=== PATIENT | female | born 1960 | race Caucasian/White ===

== ENCOUNTER 2020-01-19 09:35 | Day surgery (SDC) | payer OTHER ==
[2020-01-14 14:51] VITALS: BMI 21.7
[~2020-01-19 09:35] MED LIST: LACTATED RINGERS 1,000 ML IV SCH; LIDOCAINE 1% (10MG/ML) FOR IV START INTRADERMA PRN
[2020-01-19 10:18] VITALS: TEMP 97.2
[2020-01-19] MEDS ORDERED: LIDOCAINE 1% INJ 10MG/ML (20 ML MDV) ONE (10:59)
[2020-01-19] MEDS ORDERED: MIDAZOLAM 2 MG/2 ML VIAL ONE (10:59)
[2020-01-19] MEDS ORDERED: PROPOFOL 10 MG/ML 20 ML VIAL IV ONE (10:59)
--- NOTE | 2020-01-19 12:08 | P.PCN ---
Date of Procedure: 01/19/20 Description of Procedure: BRIEF HISTORY: Patient is a 59-year-old female presenting for outpatient colonoscopy for blood per rectum. No prior colonoscopies. Reports some change in bowel habits and mucus production per rectum. No family history of colon cancer. PROCEDURE PERFORMED: Colonoscopy with polypectomy. PREOPERATIVE DIAGNOSIS: Blood in stool, no prior colonoscopy. ESTIMATED BLOOD LOSS: Minimal. IV sedation per Anesthesia. PROCEDURE: After informed consent was obtained, the patient, was brought into the endoscopy unit. IV sedation was administered by Anesthesia under continuous monitoring. Digital rectal examination was normal. Initially the Olympus CF-190 flexible video colonoscope was then inserted in the rectum, gradually advanced into the cecum without any difficulty. Careful examination was performed as the scope was gradually being withdrawn. Ileocecal valve and the appendiceal orifice were visualized and appeared normal. Prep was excellent. Mucosa of the cecum, ascending colon, transverse colon, descending colon, sigmoid colon, and rectum a ppeared normal. Diminutive polyps measuring 1-2 mm in size were removed with cold forcep polypectomy from the transverse colon, hepatic flexure, cecum and sigmoid. Flat tubulovillous-appearing rectal polyp measuring 1.5 cm removed in piecemeal fashion with cold snare polypectomy, located approximately 5 cm from the anal verge.. Retroflexion was performed in the rectum and no lesions were seen. The patient tolerated the procedure well. IMPRESSION: 4 diminutive polyps removed with cold forcep polypectomy from the cecum, hepatic flexure, transverse colon and sigmoid. Flat tubulovillous-appearing polyp removed in piecemeal fashion with cold snare polypectomy from the rectum. RECOMMENDATIONS: Findings of this examination were discussed with the patient and her daughter. Okay to resume diet. Okay to resume medications. Await pathology from polypectomys. Would recommend repeat colonoscopy in 6 months to 1 year due to piecemeal resection of the rectal polyp.
[2020-01-19 12:22] VITALS: BP 156/67; PULSE 69; RESP 16
== END 2020-01-19 12:47 | disposition home or self-care (01) ==
LOC: ORWHC2ENDO 09:35
PROVIDERS: ATTEND Internal Medicine
DX: D12.8 Benign neoplasm of rectum (principal); D12.0 Benign neoplasm of cecum; D12.3 Benign neoplasm of transverse colon; K63.5 Polyp of colon; K62.1 Rectal polyp; F17.200 Nicotine dependence, unspecified, uncomplicated; I34.1 Nonrheumatic mitral (valve) prolapse; G47.33 Obstructive sleep apnea (adult) (pediatric); G62.9 Polyneuropathy, unspecified; Z91.030 Bee allergy status; Z90.49 Acquired absence of other specified parts of digestive tract; Z98.890 Other specified postprocedural states; Z90.13 Acquired absence of bilateral breasts and nipples; Z99.89 Dependence on other enabling machines and devices; Z85.3 Personal history of malignant neoplasm of breast; Z85.118 Personal history of other malignant neoplasm of bronchus and lung
CPT/HCPCS: 45385; 45380; 88305; J2250; J2001; J2704

== ENCOUNTER → 2020-01-30 | Outpatient (CLI) | payer OTHER ==
--- NOTE | 2020-01-31 15:07 | CTL ---
EXAMINATION TYPE: CT Low Dose Lung DATE OF EXAM ORDERED: 01/30/2020 HISTORY: 59-year-old female history of tobacco use. Lung cancer screening patient with a personal his tory of lung and breast cancer. CT DLP: 50.[address] CTDI: 1.2 mGy Automated exposure control for dose reduction was used. SCREENING VISIT: Baseline COMPARISON: 09/03/2008 TECHNIQUE: Low dose computed tomography scan was performed through the chest at 1 mm thick sections a nd reconstructed images in the coronal/sagittal plane. CT DIAGNOSTIC QUALITY: Satisfactory FINDINGS: Heart normal size without pericardial effusion. Aorta normal caliber with very direct takeoff of the left vertebral artery directly from the aortic a rch. Bulky appearance to the thyroid gland suggesting goiter. Correlate with physical exam findings. No thoracic lymphadenopathy by CT size criteria. There are bilateral mastectomies. Postsurgical changes of right upper and right lower lobectomies. Mild diffuse bronchial wall thickening. Minimal emphysematous change. 5 mm subpleural pulmonary nodule anterior left midlung, axial image 142 seems to have been slightly s maller back in 2008. 7 mm subpleural pulmonary nodule peripheral left lower lobe appears larger as compared to 2009. Axial image 269. Focal opacity posterior right base, suspected postsurgical change and chronic effusion. Posterolatera l pleural based thickening measures up to 1.6 cm thick on axial image 21 and the subpleural opacity m easures up to 4.4 x 4.3 cm, axial image 219. Biapical pleural parenchymal scarring has progressed from 2009. More nodular 7 mm area is present at the right apex, axial image 45. Pleural parenchymal thickening at the medial right apex measures up t o 9 mm, reference coronal image 139. Visualized upper abdomen shows cholecystectomy clips. Bones: Mild degenerative disc disease midthoracic spine. No osseous destructive process. IMPRESSION: 1. LungRADS Category 4A (C, prior lung cancer history), (Probably suspicious, 5-15% chance of maligna ncy). The patient is status post right middle and right lower lobectomies. There is increased biapica l pleural parenchymal scarring from 2009 with a new 7 mm nodular area on the right. 2 subpleural nodu les on the left measuring up to 7 mm and have increased in size from 2009. There is also prominent galeana bpleural opacity at the posterior right base which should be reassessed at follow-up but may simply r elate to postsurgical change and chronic effusion. 2. COPD with mild emphysema. 3. Status post bilateral mastectomies. 4. Bulky thyroid gland suggesting goiter. Clinically correlate. RECOMMENDATION: 1. Three-month follow-up low-dose CT chest. 2. Smoking cessation. FOLLOW UP CT CHEST RECOMMENDATION: [address] LUNG RAD: Lung-Rad 4A Probably Suspicious
== END | disposition home or self-care (01) ==
LOC: RADCTMAIN 07:46
PROVIDERS: ATTEND Family Medicine
DX: Z12.2 Encounter for screening for malignant neoplasm of respiratory organs (principal); R91.8 Other nonspecific abnormal finding of lung field; J43.9 Emphysema, unspecified; J90 Pleural effusion, not elsewhere classified; F17.210 Nicotine dependence, cigarettes, uncomplicated; Z90.13 Acquired absence of bilateral breasts and nipples; Z85.118 Personal history of other malignant neoplasm of bronchus and lung

== ENCOUNTER → 2020-04-08 | Outpatient (CLI) | payer OTHER ==
--- NOTE | 2020-04-08 14:11 | ECHOS ---
STRESS ECHOCARDIOGRAM LUMASON: Vial INDICATIONS: Chest pressure. MEDICATIONS: BASELINE HEART RATE: 74 BASELINE BLOOD PRESSURE: 142/84 MAXIMUM HEART RATE: 136 MAXIMUM BLOOD PRESSURE: 142/84 85% MPHR: 138 100% MPHR: 162 METS: 8.5 MAXIMUM STAGE REACHED: 3 TOTAL EXERCISE TIME: 7:11 CLINICAL INFORMATION: Ms. Cota is a patient of Dr. Orozco who has chest pressure. She was brought in for a stress echo. Baseline heart rate 74 beats per minute. Baseline blood pressure 142/84 mmHg. Baseline 12-lead ECG shows sinus rhythm with early repolarization abnormality inferolaterally. Patient exercised on a Sreedhar protocol for 7 minutes, 11 seconds achieving a peak heart rate of 136 beats per minute. Normal blood pressure response. There was no ECG evidence for ischemia. No arrhythmias noted. Baseline 2D echo images showed normal LV size and systolic function without segmental wall motion abnormalities. At peak exercise, there was excellent augmentation of overall LV contractility without development of any wall motion abnormalities. At recovery, regional and global LV systolic function remained normal. IMPRESSION: 1. Average exercise capacity. 2. No ECG or echocardiographic evidence for ischemia at this workload level. MMODL / IJN: [id number] /
== END | disposition home or self-care (01) ==
LOC: RADNMMAIN 08:50
PROVIDERS: ATTEND Family Medicine
DX: R07.89 Other chest pain (principal)
CPT/HCPCS: 93351

== ENCOUNTER → 2020-05-21 | Outpatient (CLI) | payer OTHER ==
--- NOTE | 2020-05-22 20:33 | CTL ---
EXAMINATION TYPE: CT Low Dose Lung DATE OF EXAM ORDERED: 05/21/2020 HISTORY: Personal history of tobacco use. Lung cancer screening. History of lung and breast cancer. CT DLP: 44.[address] CTDI: 1.10 mGy Automated exposure control for dose reduction was used. SCREENING VISIT: Follow-up COMPARISON: CT low dose lung screening 01/29/2026 TECHNIQUE: Low dose computed tomography scan was performed through the chest at 1 mm thick sections a nd reconstructed images in the coronal plane at [address] DIAGNOSTIC QUALITY: Satisfactory FINDINGS: LUNG NODULES: Present, detailed below: Right upper and lower lobe lobectomy postsurgical changes with unchanged small right pleural effusion . Biapical pleural thickening and scarring. Focal 7 mm nodular component at the right apex (4:32) unc hanged versus 01/30/2020. 5 mm subpleural solid pulmonary nodule of the left upper lobe (4:128) unchanged versus 01/30/2020. 6 mm subpleural solid pulmonary nodule of the left lower lobe (4:250) unchanged versus 01/30/2020. LUNGS: COPD: Severity: Mild Fibrosis: Severity: None Lymph nodes: None Other findings: None HEART: Heart Size: Normal Coronary calcification: None Pericardial effusion: None OTHER FINDINGS: Upper abdomen: None Bony thorax: Mild degenerative change Supraclavicular region: None Other: None IMPRESSION: Pulmonary nodules are unchanged on 3 month follow-up. FOLLOW UP CT CHEST RECOMMENDATION: CT low dose lung screening in [address] LUNG RAD: Lung-Rad 2 Benign Appearance or Behavior
== END | disposition home or self-care (01) ==
LOC: RADCTMAIN 07:11
PROVIDERS: ATTEND Family Medicine
DX: Z12.2 Encounter for screening for malignant neoplasm of respiratory organs (principal); R91.8 Other nonspecific abnormal finding of lung field; F17.210 Nicotine dependence, cigarettes, uncomplicated

== ENCOUNTER → 2021-09-07 | Outpatient (CLI) | payer OTHER ==
--- NOTE | 2021-09-07 14:47 | ECHOS ---
STRESS ECHOCARDIOGRAM INDICATIONS: Chest pain BASELINE HEART RATE: 73 BASELINE BLOOD PRESSURE: 139/65 MAXIMUM HEART RATE: 124 MAXIMUM BLOOD PRESSURE: 191/67 85% MPHR: 136 100% MPHR: 160 METS: 9.1 MAXIMUM STAGE REACHED: 3 TOTAL EXERCISE TIME: 7:39 CLINICAL INFORMATION: Baseline rhythm is sinus mechanism, rate 73, normal axis and intervals, normal electrocardiogram. Baseline blood pressure 139/65 mmHg. Patient exercised on Sreedhar protocol for 7 minutes 39 seconds, reaching a peak rate of 124 beats per minute, which is less than her 85% maximum predicted heart rate. Peak blood pressure 183/74 mmHg. Test was terminated secondary to fatigue. There was no chest pain. Patient had dizziness at peak exercise. Electrocardiograph monitoring revealed rare PVCs. There was no evidence of diagnostic ischemic ST deviation. FINDINGS: Baseline echocardiogram revealed normal wall thickness and motion. At peak exercise there was normal wall motion augmentation with no hypokinesis or dyskinesis. CONCLUSION: 1. Average exercise tolerance with nondiagnostic electrocardiograph stress testing secondary to the inability to achieve 85% of maximum predicted heart rate. 2. Normal stress echocardiogram at the rate achieved. There was no evidence of stress- induced ischemia. MMODL / IJN: [id number] /
== END | disposition home or self-care (01) ==
LOC: RADNMMAIN 08:52
PROVIDERS: ATTEND Family Medicine
DX: R07.9 Chest pain, unspecified (principal); I10 Essential (primary) hypertension
CPT/HCPCS: 93351

== ENCOUNTER → 2021-09-30 | Outpatient (CLI) | payer OTHER ==
--- NOTE | 2021-09-30 08:41 | CTL ---
EXAMINATION TYPE: CT Low Dose Lung DATE OF EXAM ORDERED: 09/30/2021 HISTORY: Long-term tobacco use. Lung cancer screening CT DLP: 44.[address] CTDI: 1.2 mGy Automated exposure control for dose reduction was used. SCREENING VISIT: Second after baseline COMPARISON: Prior CTs in 2019 TECHNIQUE: Low dose computed tomography scan was performed through the chest at 1 mm thick sections a nd reconstructed images in multiple planes at 1 mm and [address] DIAGNOSTIC QUALITY: Satisfactory FINDINGS: LUNG NODULES: Present, detailed below: Stable 7 x 5 mm right apical nodule axial image 30 versus nodular scarring. Stable 4 mm subpleural anterior left upper lung nodule versus nodular scarring axial image 123. Stable 6 mm subpleural left lower lobe nodule axial image 243. No new greater than 5 mm pulmonary nodules or masses. LUNGS: COPD: Severity: Mild to moderate Fibrosis: Severity: Moderate biapical pleural/parenchymal scarring redemonstrated. Lymph nodes: No greater than 1 cm adenopathy Other findings: Surgical change to the right lower lung with right-sided volume loss redemonstrated. BILATERAL PLEURAL SPACE: Effusion: None Calcification: None Thickening: Moderate biapical thickening redemonstrated Pneumothorax: None HEART: Heart Size: Normal Coronary Calcification: None Pericardial Effusion: None OTHER FINDINGS: Upper abdomen: Cholecystectomy clips redemonstrated Bony thorax: None Supraclavicular region: None Other: None IMPRESSION: No new or enlarging nodules. Posttreatment changes to right lung redemonstrated. CT LUNG RAD AND CT CHEST RECOMMENDATION: Lung-Rad 2 Benign Appearance or Behavior: Continue annual sc reening with LDCT in 12 months. S Modifier (other clinically significant findings): None
== END | disposition home or self-care (01) ==
LOC: RADCTMAIN 07:47
PROVIDERS: ATTEND Family Medicine
DX: Z12.2 Encounter for screening for malignant neoplasm of respiratory organs (principal); Z87.891 Personal history of nicotine dependence
CPT/HCPCS: 71271

== ENCOUNTER → 2022-03-13 | Outpatient (CLI) | payer OTHER ==
--- NOTE | 2022-03-13 09:07 | BD ---
EXAMINATION TYPE: Axial Bone Density DATE OF EXAM: 03/13/2022 COMPARISON: NO PRIOR STUDIES AT [facility] CLINICAL HISTORY: 61 years year old Female. ICD-10 CODE: Z78.0 POST MENOPAUSAL Height: 67 Weight: 149 FRAX RISK QUESTIONS: History of Fracture in Adulthood: YES Current Tobacco Use: YES RISK FACTORS HISTORY OF: LT TIB FIB...2021 History of Wrist Fracture: RT... A YOUTH Active: YES Postmenopausal woman: YES, AT 49 YRS....CHEMO INDUCED Hyperparathyroidism: NO Adrenal Insufficiency: NO MEDICATIONS: Additional Medications: BP MEDS, XANAX, HX OF CHEMO, HERCEPTIN, LUNG CA AND LT BREAST CA, VIT D Additional History: HYPERTENSION, PORTION OF RT LUNG REMOVED FOR CA, BILAT MASTECTOMY, LT BR CANCER, ANXIETY EXAM MEASUREMENTS: Bone mineral densitometry was performed using the [employer] System. Bone mineral density as measured about the Lumbar spine is: ----- L1-L4(G/cm2): 1.070 T Score Values are as follows: ----- L1: -0.9 ----- L2: -0.8 ----- L3: -0.8 ----- L4: -1.2 ----- L1-L4: -0.9 Bone mineral density FIRST DEXA STUDY Bone mineral density about the R hip (g/cm2): 0.642 Bone mineral density about the L hip (g/cm2): 0.767 T Score values are as follows: -----R Neck: -2.6 -----L Neck: -1.9 -----R Total: -2.9 -----L Total: -1.9 Bone mineral density FIRST DEXA STUDY FRAX%s: The graph provided illustrates a 21.9% chance for a major osteoporotic fx and a 7.6% chance f or the hips probability for fx in 10 years time. IMPRESSION: Osteopenia (T Score between -2.5 and -1). There is slightly increased risk of fracture and the patient may be considered for treatment. Re-Screen 2-5 years. NOTE: T-SCORE=SD OF THE YOUNG ADULT MEAN.
== END | disposition home or self-care (01) ==
LOC: RADBDWWP 08:32
PROVIDERS: ATTEND Family Medicine
DX: M81.0 Age-related osteoporosis without current pathological fracture (principal); Z78.0 Asymptomatic menopausal state
CPT/HCPCS: 77080

== ENCOUNTER → 2023-11-08 | Outpatient (CLI) | payer OTHER ==
--- NOTE | 2023-11-08 14:43 | US ---
EXAMINATION TYPE: US pelvic complete DATE OF EXAM: 11/08/2023 COMPARISON: NONE CLINICAL INDICATION: Female, 63 years old with history of R10.2 PELVIC AND PERINEAL PAIN; Hx Lung an d breast cancer 2008 TECHNIQUE: Transabdominal sonographic images of the pelvis were acquired. Transvaginal sonographic images were medically necessary to better assess the following anatomy: All Date of LMP: 2008 EXAM MEASUREMENTS: Uterus: 6.2 x 3.1 x 4.2 cm Endometrial Stripe: 0.2 cm Right Ovary: 2.6 x 1.2 x 2.0 cm Left Ovary: 2.5 x 1.2 x 2.1 cm 1. Uterus: Retroverted Calcification right uterus fundus 2. Endometrium: wnl 3. Right Ovary: wnl 4. Left Ovary: wnl 5. Bilateral Adnexa: wnl 6. Posterior cul-de-sac: wnl IMPRESSION: 1. Small calcification in the uterine fundus with no other significant abnormalities seen.
== END | disposition home or self-care (01) ==
LOC: RADUSWWP 12:49
PROVIDERS: ATTEND Family Medicine
DX: N85.8 Other specified noninflammatory disorders of uterus (principal); R10.2 Pelvic and perineal pain
CPT/HCPCS: 76830; 76856

== ENCOUNTER → 2024-02-08 | Outpatient (CLI) | payer OTHER ==
--- NOTE | 2024-02-09 14:36 | CTL ---
EXAMINATION TYPE: CT Low Dose Lung DATE OF EXAM: 02/08/2024 8:18 AM CLINICAL INDICATION:Female, 63 years old with history of Z12.2 LUNG CANCER SCREEN F17.210 CURRENT SMO KER; smoker , history of tobacco use. COMPARISON: Multiple dating back to 01/30/2020.. TECHNIQUE: Multiple axial non-contrast scans were obtained from approximately the lung apices through the upper abdomen. Coronal and sagittal reformatted images were obtained. Low dose technique was uti lized. CT DLP: 52.8 mGycm, Automated exposure control for dose reduction was used. CT Contrast: Contrast used: None Oral contrast used: None FINDINGS: ======== Lack of intravenous contrast and low dose technique limits the evaluation of the vascular and soft ti ssue structures. LUNGS: No evidence of pulmonary fibrosis. No evidence of focal consolidation, pneumothorax or pleural effusion. Centrilobular emphysema changes. Nodules: Stable nodules as described below. A mixture at least 2019. RUL: Apical scarring with nodule measuring 5 mm series 9 image 16 MARISOL: 2 mm series 5 image 24. LLL: 5 mm series 5 image 49. The right middle and lower lobe are not definitively visualized may be surgically absent. AIRWAY: Patent and unremarkable. HEART: Size within normal limits. MEDIASTINUM: No gross evidence of adenopathy. VASCULATURE: No aortic aneurysm. MUSCULOSKELETAL: No acute osseous abnormalities SOFT TISSUES/LYMPH NODES: Unremarkable. LOWER NECK: No significant findings. UPPER ABDOMEN: Cholecystectomy clips. IMPRESSION: 1. No clinically significant pulmonary nodules. 2. Mild emphysema. 3. Postsurgical changes the right lung with rightward shift of the mediastinum without evidence for e nlarging lymphadenopathy. CT LUNG RAD AND CT CHEST RECOMMENDATION: Lung-Rad 2 Benign Appearance or Behavior: Continue annual sc reening with LDCT in 12 months. S Modifier (other clinically significant findings): None Recommend smoking cessation (if current smoker), or continuation of smoking cessation (if prior smoke r). Annual screening for lung cancer with low-dose computed tomography is recommended in adults ages 55 to 77 years who have a 30 pack-year smoking history and currently smoke or have quit within the pa st 15 years. Screening should be discontinued once a person has not smoked for 15 years or develops a health problem that substantially limits life expectancy or the ability or willingness to have curat latesha lung surgery. Lung rads 2021 [email or web address]
== END | disposition home or self-care (01) ==
LOC: RADCTMAIN 07:55
PROVIDERS: ATTEND Family Medicine
DX: Z12.2 Encounter for screening for malignant neoplasm of respiratory organs (principal); F17.210 Nicotine dependence, cigarettes, uncomplicated; J43.9 Emphysema, unspecified
CPT/HCPCS: 71271